=== PATIENT | female | born 2000 | race Hispanic/Latino ===

== ENCOUNTER 2021-01-31 11:19 | Day surgery (SDC) | payer OTHER ==
[2021-01-31 12:53] VITALS: BMI 32.1
[2021-01-31] MEDS ORDERED: hydrALAZINE 20 MG/ML VIAL SLOW IVP PRN (13:35)
== END 2021-01-31 14:20 | disposition home or self-care (01) ==
LOC: CSHLD/OP 11:19
PROVIDERS: ATTEND Family Medicine
DX: O47.1 False labor at or after 37 completed weeks of gestation (principal); O99.891 Other specified diseases and conditions complicating pregnancy; R10.9 Unspecified abdominal pain; O99.013 Anemia complicating pregnancy, third trimester; D64.9 Anemia, unspecified; Z3A.39 39 weeks gestation of pregnancy
CPT/HCPCS: 99282

== ENCOUNTER 2021-02-01 09:22 | Outpatient (CLI) | payer OTHER ==
[2021-02-01 17:59] LABS: SARS-CoV-2 PCR by NAA Not Detected (NotDetected)
== END 2021-02-01 09:23 | disposition home or self-care (01) ==
LOC: CSHLAB 09:22
PROVIDERS: ATTEND Family Medicine
DX: Z20.822 Contact with and (suspected) exposure to COVID-19 (principal)
CPT/HCPCS: 87635; U0003; U0005

== ENCOUNTER 2021-02-01 13:26 | Inpatient (IN) | payer OTHER ==
[~2021-02-01 13:26] MED LIST: Bupivacaine 0.25% HCL 30 ML VIAL ONE; ePHEDrine Sulfate 50 MG/10 ML VIAL ONE
[2021-02-01 14:09] VITALS: BMI 32.1
[2021-02-01] MEDS ORDERED: HYDROcodone/Acetaminophen 5/325 mg Tablet PO PRN ×2 (17:51)
[2021-02-01] MEDS ORDERED: Penicillin G Potassium 5 MILL.UNITS in Sodium Chloride 0.9% 100 ML IVPB SCH (17:51)
[2021-02-01] MEDS ORDERED: Lactated Ringer's 1,000 ML IV SCH (17:51)
[2021-02-01] MEDS ORDERED: Ibuprofen 800 MG TAB PO PRN (17:51)
[2021-02-01] MEDS ORDERED: Lidocaine 1% (PF) 30 ML VIAL SC PRN (17:51)
[2021-02-01] MEDS ORDERED: Promethazine HCl 25 MG/ML VIAL IM PRN ×2 (17:51→19:52)
[2021-02-01] MEDS ORDERED: hydrALAZINE 20 MG/ML VIAL SLOW IVP PRN (17:51)
[2021-02-01] MEDS ORDERED: Butorphanol Tartrate 1 MG/ML VIAL SLOW IVP PRN (17:51)
[2021-02-01] MEDS ORDERED: Ondansetron PF 4 MG/2 ML Vial IVP PRN ×2 (17:51→19:52)
[2021-02-01 18:12] LABS: Hemoglobin 12.4 g/dL (12.0-15.5); Mean Corpuscular HGB CONC 32.7 g/dL (32.0-36.0); Mean Corpuscular Hemoglobin 28.2 pg (27.0-33.0); Mean Corpuscular Volume 86.1 fl (81.6-98.3); Mean Platelet Volume 10.1 fl (7.4-10.4); Platelet Count 290 10x3/uL (150-450); RBC Distribution Width 16.1 % (11.5-14.5); White Blood Cell (WBC) Count 14.3 10x3/uL (3.5-10.5)
[2021-02-01] MEDS ORDERED: NS w/ Oxytocin 30 units 500 ML IV PRN (18:17)
[2021-02-01] MEDS ORDERED: NS w/ Oxytocin 30 units 500 ML IVPB SCH (18:30)
[2021-02-01 18:43] LABS: Hep B Surf Ag Non-Reactive S/CO (NonReactive); Syphilis Antibody Nonreactive (Nonreactive); Syphilis Antibody Index 0.04 S/CO (<1.00 Non-Reactive)
[2021-02-01 18:45] LABS: HBSAg Index 0.16 S/CO (0-0.99)
[2021-02-01] MEDS ORDERED: Fentanyl 4 mcg/Bup 0.1% Cadd 100 ML ONE (19:04)
[2021-02-01] MEDS ORDERED: Acetaminophen 325 MG TAB PO PRN (19:52)
[2021-02-01] MEDS ORDERED: Naloxone HCl 0.4 mg/ml Vial IVP PRN ×2 (19:52)
[2021-02-01] MEDS ORDERED: diphenhydrAMINE 50 MG/ML VIAL IVP PRN (19:52)
[2021-02-01] MEDS ORDERED: ePHEDrine 50 MG/ML VIAL SLOW IVP PRN (19:52)
[2021-02-01] MEDS ORDERED: Lactated Ringer's 500 ML IV PRN (19:52)
[2021-02-01] MEDS: Lactated Ringer's 1,000 ML IV SCH (19:55)
[2021-02-01] MEDS ORDERED: Fentanyl 4 mcg/Bupivacaine 0.1% Cassette 100 ML EPIDURAL SCH (20:00)
[2021-02-01] MEDS ORDERED: Communication Order-Pharmacy FS SCH (20:00)
[2021-02-01] MEDS: Penicillin G 2.5 MILL.units 2.5 MILL.UNITS in Premix Bag 1 BAG IVPB SCH (21:54)
[2021-02-02] MEDS ORDERED: Preparation H Ointment 28 GM TUBE PR PRN (04:10)
[2021-02-02] MEDS ORDERED: Benzocaine-Menthol 82.5 ML CAN TOP PRN (04:10)
[2021-02-02] MEDS ORDERED: Bisacodyl 10 MG SUPP PR PRN (04:10)
[2021-02-02] MEDS ORDERED: Lanolin Ointment 7 GM TUBE TOP PRN (04:10)
[2021-02-02] MEDS ORDERED: Milk Of Magnesia 30 ML UDCUP PO PRN (04:10)
[2021-02-02] MEDS ORDERED: NS / Oxytocin 40 units/1000ml 1,000 ML IV SCH (04:10)
[2021-02-02] MEDS ORDERED: diphenhydrAMINE 25 MG CAP PO PRN (04:10)
[2021-02-02] MEDS ORDERED: HYDROcodone/Acetaminophen 5/325 mg Tablet PO PRN ×2 (04:10)
[2021-02-02] MEDS ORDERED: hydrALAZINE 20 MG/ML VIAL SLOW IVP PRN (04:10)
[2021-02-02] MEDS ORDERED: Promethazine HCl 25 MG/ML VIAL IM PRN (04:10)
[2021-02-02] MEDS ORDERED: Ondansetron PF 4 MG/2 ML Vial IVP PRN (04:10)
[2021-02-02] MEDS: Lactated Ringer's 1,000 ML IV SCH (08:17)
[2021-02-02] MEDS: Penicillin G 2.5 MILL.units 2.5 MILL.UNITS in Premix Bag 1 BAG IVPB SCH (08:17)
[2021-02-02] MEDS: Ferrous Sulfate 325 MG TAB PO SCH ×2 (08:19→16:16)
[2021-02-02] MEDS ORDERED: Adacel (T-DAP) 0.5 ML SYRINGE IM ONE (09:00)
[2021-02-02] MEDS: Docusate Calcium (SURFAK) 240 MG CAP PO SCH ×2 (09:58→21:31)
[2021-02-02] MEDS: Prenatal Vitamin 1 TAB PO SCH (09:58)
[2021-02-02] MEDS: Ibuprofen 800 MG TAB PO SCH ×3 (09:58→21:31)
[2021-02-03] MEDS: Ibuprofen 800 MG TAB PO SCH ×3 (05:10→21:53)
[2021-02-03] MEDS: Ferrous Sulfate 325 MG TAB PO SCH ×2 (08:04→15:52)
[2021-02-03] MEDS: Docusate Calcium (SURFAK) 240 MG CAP PO SCH ×2 (08:58→21:51)
[2021-02-03] MEDS: Prenatal Vitamin 1 TAB PO SCH (08:58)
[2021-02-04] MEDS: Ibuprofen 800 MG TAB PO SCH (06:31)
[2021-02-04] MEDS: Ferrous Sulfate 325 MG TAB PO SCH (07:27)
[2021-02-04] MEDS: Docusate Calcium (SURFAK) 240 MG CAP PO SCH (08:46)
[2021-02-04] MEDS: Prenatal Vitamin 1 TAB PO SCH (08:46)
[2021-02-04 17:08] VITALS: BP 122/63; TEMP 98.5
== END 2021-02-04 10:15 | disposition home or self-care (01) | DRG 807 ==
LOC: CSHLD/OP 13:26 → CSHLD 17:51 → UNDOADMIN 02-02 01:51 → CSHPP 02-02 06:05 → CSHLD 02-02 06:05
PROVIDERS: ADMIT Family Medicine; ATTEND Family Medicine
PROC: 10E0XZZ Delivery of Products of Conception, External Approach (ICD-10-PCS; principal; 2021-02-02)
PROC: 0HQ9XZZ Repair Perineum Skin, External Approach (ICD-10-PCS; 2021-02-02)
PROC: 10907ZC Drainage of Amniotic Fluid, Therapeutic from Products of Conception, Via Natural or Artificial Opening (ICD-10-PCS; 2021-02-02)
DX: O98.82 Other maternal infectious and parasitic diseases complicating childbirth (principal); Z37.0 Single live birth; Z3A.39 39 weeks gestation of pregnancy; O70.0 First degree perineal laceration during delivery; B95.1 Streptococcus, group B, as the cause of diseases classified elsewhere
CPT/HCPCS: 36415; 51702; 85027; 86780; 86850; 86900; 86901; 87340; 87635; 99282; 99285; J2405; J2540; J2590; S0020; U0003; U0005